=== PATIENT | male | born 1980 | race Caucasian/White ===

== ENCOUNTER 2016-11-26 11:32 | Emergency (ER) | payer MEDICAID ==
[2016-11-26 11:43] VITALS: TEMP 99
--- NOTE | 2016-11-26 13:21 | EDPHY ---
H & P Time Seen by Provider: 11/26/16 13:18 HPI/ROS: HPI: 36-year-old male presents to emergency department with chief concern right knee pain and swelling that onset 2 weeks ago when he jumped over a fence , landing on his leg in such a way that his right knee buckled, and has had intense pain and swelling since that time. Was evaluated at a [facility] emergency department. X-ray was performed. He was not given a brace, was not given a copy of his x-ray, nor a referral for Orthopedics. He is requesting a orthopedic referral. Denies striking his head, neck or back pain. Reports intermittent right hip discomfort as he has been walking on his right knee without crutches over the past several days despite the intense pain. ROS:10 point review of systems is negative other than as stated in HPI Smoking Status: Former smoker Physical Exam: Vital signs stable, reviewed by me General: Awake, alert, calm, cooperative. No acute distress. Head: Normalocephalic. Atraumatic. EENT: PERRLA. EOMI. Neck: Supple, nontender. No midline tenderness, full ROM. Respiratory: Breathing unlabored. CV: Chest nontender, atraumatic. Distal pulses 2+. Brisk cap refill all extremities. GI: Deferred Neuro: Alert. Oriented x 3. Sensation intact all extremities. Skin: Skin warm, dry, intact. No ecchymosis, abrasions, or lacerations. Extremities: No discomfort to palpation of the right hip, leg, ankle or foot. Full ROM. Generalized swelling right knee. There is discomfort to palpation of the superior, lateral, inferior aspect of the right knee. Markedly decreased extension and flexion. Negative valgus and varus stress. Negative Kathi. Negative AP drawer. Negative ballotment. Constitutional: Initial Vital Signs Temperature (C) 37.2 C 11/26/16 11:40 Heart Rate 81 11/26/16 11:40 Respiratory Rate 16 11/26/16 11:40 Blood Pressure 125/71 H 11/26/16 11:40 O2 Sat (%) 94 11/26/16 11:40 Allergies/Adverse Reactions: No Known Allergies Allergy (Verified 09/23/16 13:32) Home Medications: Medication Instructions Recorded CYCLOBENZAPRINE HCL [Flexeril] 5 mg PO TIDPRN PRN #10 tab 09/23/16 Hydrocodone/APAP 5/325 [Killeen 1 each PO Q4-6PRN PRN #14 tab 09/23/16 5/325 (*)] Hydrocodone/APAP 5/325 [[place] 1 tab PO Q4H PRN #10 tab 11/26/16 5/325 (*)] Medical Decision Making - Diagnostics Imaging: Knee x-ray consistent with effusion but no fracture, dislocation. Final report pending at time this dictation ED Course/Re-evaluation: Patient place in a right knee brace. Neurovascular status intact after application. He has crutches at home. Copy of his x-ray given to him on disc. He has been referred for follow up with Orthopedics. Differential Diagnosis: Differential diagnosis includes but is not limited to internal derangement of the knee, including meniscal injury, ligament injury, fracture, dislocation Departure - Departure Disposition: Home, Routine, Self-Care Clinical Impression: Internal derangement of knee Qualifiers: Laterality: right Qualifier Code: (M23.91) Unspecified internal derangement of right knee Condition: Good Instructions: Swollen Knee Joint (ED) Additional Instructions: Plan: Use your crutches until you follow up with Orthopedics Follow up with orthopedist by the end of this week--When you call to schedule appointment, please let the office know you are an "ER follow up" appointment" You may use 600 mg of ibuprofen every 6 hours for fever, inflammation, or pain. Always take ibuprofen with food and stay well hydrated while taking. Do not exceed the maximum allowable dose in a 24 hour period which is 2400 mg. ice every 1-2 hours for 20 minutes for the the next 2-3 days Wear knee brace while up and about 1-2 Killeen every 6 hours as needed for severe discomfort--never drink or drive while taking, you need to follow up with orthopedist for further narcotic refills if your pain is severe Referrals: NONE *PRIMARY CARE P,. [Primary Care Provider] - As per Instructions Carlyle Boyd MD [Medical Doctor] - As per Instructions Carlyle Champagne MD [Medical Doctor] - As per Instructions Prescriptions: Hydrocodone/APAP 5/325 [K[place] 5/325 (*)] 1 tab PO Q4H PRN #10 tab PRN Reason: Severe pain
[2016-11-26 13:54] VITALS: BP 123/87; PULSE 77; RESP 18; O2SAT 97
--- NOTE | 2016-11-26 14:52 | DX ---
Right knee, 5 views. HISTORY: Pain after trauma. Difficulty walking. FINDINGS: There is thickening of the suprapatellar soft tissues suggestive of joint effusion or quadr iceps tendon injury. The patella is also somewhat low in position. MRI examination of the knee is sug gested for further characterization of possible distal quadriceps tendon injury as clinically appropr iate. No fracture. Joint spaces are maintained. IMPRESSION: 1. Soft tissue thickening in the suprapatellar space suspicious for distal quadriceps injury or knee joint effusion. MRI of the knee is suggested as clinically appropriate.
== END 2016-11-26 13:54 | disposition home or self-care (01) ==
DX: M23.91 Unspecified internal derangement of right knee (principal); Z87.891 Personal history of nicotine dependence
CPT/HCPCS: L1830

== ENCOUNTER → 2016-12-24 | Outpatient (CLI) | payer MEDICAID | LOC: FIMAGING 12:02 | PROVIDERS: ATTEND Physician Assistant | DX: S83.511A Sprain of anterior cruciate ligament of right knee, initial encounter (principal); S83.251A Bucket-handle tear of lateral meniscus, current injury, right knee, initial encounter; S83.231A Complex tear of medial meniscus, current injury, right knee, initial encounter; S83.411A Sprain of medial collateral ligament of right knee, initial encounter; M22.41 Chondromalacia patellae, right knee; M25.461 Effusion, right knee ==

== ENCOUNTER 2017-01-12 08:42 | Day surgery (SDC) | payer MEDICAID ==
[2017-01-12] MEDS ORDERED: LIDOCAINE 1% 5 ML SDV ONE (08:57)
[2017-01-12] MEDS ORDERED: BUPIVACAINE/EPI 0.5% 30 ML SDV ONE (09:20)
[2017-01-12] MEDS ORDERED: LIDOCAINE 1% 5 ML SDV ID PRN (09:26)
[2017-01-12] MEDS ORDERED: LR 1,000 ML IV ONE (09:26)
[2017-01-12] MEDS ORDERED: CHLORHEXIDINE GLUC HIBICLENS 118 ML BTL TP ONE (09:30)
[2017-01-12] MEDS ORDERED: ceFAZolin 2 GM/DEXTROSE 100 ML IV ONE (09:30)
[2017-01-12] MEDS ORDERED: PROPOFOL 200 MG/20 ML VIAL ONE (09:32)
[2017-01-12] MEDS ORDERED: MIDAZOLAM 2 MG/2 ML VIAL ONE (09:33)
[2017-01-12] MEDS ORDERED: ROCURONIUM 50 MG/5 ML VIAL ONE ×2 (09:33)
[2017-01-12] MEDS ORDERED: HYDROmorphONE/DILAUDID 2 MG/ML INJ ONE (09:34)
[2017-01-12] MEDS ORDERED: LIDOCAINE 2% 5 ML SDV ONE (09:35)
[2017-01-12] MEDS ORDERED: LIDOCAINE 2% JELLY 5 ML TUBE ONE (09:35)
[2017-01-12] MEDS ORDERED: PROPOFOL/EMULSION 500 MG/50 ML BOTTLE IV ONE ×2 (09:48→10:44)
[2017-01-12] MEDS ORDERED: GLYCOPYRROLATE 0.2 MG/1 ML VIAL ONE ×2 (10:02→11:01)
[2017-01-12] MEDS ORDERED: fentaNYL 250 MCG/5 ML INJ ONE (10:48)
[2017-01-12] MEDS ORDERED: KETOROLAC 30 MG/1 ML SDV ONE (10:57)
[2017-01-12] MEDS ORDERED: PHENYLEPHRINE 10 MG/ML SDV ONE (11:01)
[2017-01-12] MEDS ORDERED: ONDANSETRON 4 MG/2 ML VIAL ONE (11:07)
[2017-01-12] MEDS ORDERED: DEXAMETHASONE 4 MG/ML VIAL ONE (11:07)
[2017-01-12] MEDS ORDERED: NALOXONE HCL 0.4 MG/ML INJ ONE ×2 (11:18)
[2017-01-12] MEDS ORDERED: fentaNYL 100 MCG/2 ML INJ ONE (11:33)
[2017-01-12] MEDS ORDERED: HYDROmorphONE/DILAUDID 1 MG/ML SYR ONE (11:41)
[2017-01-12] MEDS ORDERED: OXYCODONE/APAP 5/325 TAB ONE ×2 (12:25→12:58)
[2017-01-12] MEDS ORDERED: DIAZEPAM 5 MG TAB ONE (12:53)
[2017-01-12] MEDS ORDERED: DIAZEPAM 5 MG TAB PO ONE (13:00)
--- NOTE | 2017-01-13 09:20 | GOP ---
DATE OF OPERATION: 01/12/2017 SURGEON: Cuauhtemoc Moraes MD COMMERCIAL ELECTRICIAN: Gallito Goldman, RESIDENTIAL DRIVER, [facility]. animal care assistant was a medical necessity for the entirety of the case. PREOPERATIVE DIAGNOSIS: Right knee anterior cruciate ligament disruption. Lateral meniscus tear. POSTOPERATIVE DIAGNOSIS: Right knee anterior cruciate ligament disruption. Lateral meniscus tear. PROCEDURE PERFORMED: 1. Right knee anterior cruciate ligament reconstruction with hybrid tendon graft, tendon graft harv est from a distance. 2. Partial lateral meniscectomy. FINDINGS: INDICATIONS: The patient is a 37-year-old gentleman, who has sustained an injury to his right knee, with disruption of his ACL and bucket-handle displaced tear to his lateral meniscus. Given the per sistent nature of his symptoms and immobility, I have recommended surgical intervention. I outlined the surgical procedure, risks, benefits, alternatives. He wished to proceed. Written consent was signed and placed in patient's chart. DESCRIPTION OF PROCEDURE: The patient was identified in the preanesthesia area. He was given 2 g o f Ancef intravenously en route to the operative suite. In the OR, general endotracheal anesthesia w as administered. Attention was turned to the right knee which was sterilely prepped and draped in t usual fashion. Appropriate time-out procedure was carried out. The limb was exsanguinated with an Esmarch bandage. Tourniquet inflated to 275 mmHg. Standard arthroscopic portal sites were creat ed. Diagnostic arthroscopy ensued. The suprapatellar pouch demonstrated moderately inflamed synovi um. The articular surface of the patella and trochlea demonstrated grade 1 softening only. The med ial and lateral gutters were free of any loose or foreign debris. The medial compartment was entere d. The articular surface of the femur and tibia were intact, with mild grade 1 softening. The medi al meniscus demonstrated minimal degenerative inner margin fraying. Minimal debridement was carried out. The intercondylar notch was entered. The ACL was grossly disrupted and incarcerated across t anterior surface of the knee. There was a displaced bucket-handle tear to the lateral meniscus w hich was macerated and torn from its posterior insertion. This was deemed irreparable and removed. Approximately 60% of the mid 3rd to posterior 3rd volume of the lateral meniscus was debrided and r emoved. The remaining edge was grossly tattered. This was cleaned with a biting meniscal instrumen t to a clean and stable edge. Any loose particulate debris was withdrawn. There were grade 2 chond ral changes across the lateral femoral condyle. Attention was turned to the anterior aspect of the knee and anteromedial incision was made. This was carried sharply through the skin to the subcutane ous tissue. This was elevated across to the sartorius fascia. A linear incision was made over the semitendinosus tendon. This was freed of the surrounding soft tissue and stripped down to the muscu lar belly. This graft was then prepared on the back table, with removal of the remaining muscular t issue, suturing of the proximal margin. This was then combined with an allograft tendon prepared in similar fashion, with fiber loop suturing on the proximal and distal ends, over an ACL tight rope b utton, under moistened gauze and tension. Concomitantly, attention was turned to the knee. The remnants of the ACL were completely excised. Notchplasty was performed with an oscillating shaver and bur and a curette. All loose particulate d ebris was withdrawn. A 10 mm femoral tunnel was created using a flip cutter from an outside in [facility], and a separate tibial tunnel was made using a reamer over a guide pin. The sutures for the A CL tightrope were drawn in retrograde fashion, exiting the lateral surface of the femur. The button was flipped on the lateral cortex of the femur and the graft drawn into the femoral tunnel. Each i ndividual strand of the graft was placed under tension. Knee was taken through 10 cycles of motion and a posterior drawer was applied, and the graft was secured in the tibia using an 11 x 28 mm BioCo mposite screw. The excess graft was trimmed flush. Those sutures were removed. The particulate de bris within the knee was evacuated free. All incisions were closed using 2-0 Monocryl, 4-0 nylon. The knee was instilled with 30 cc of 0.5% Marcaine with epinephrine. Sterile dressing was applied, followed by a brace. The patient was awakened, taken to the recovery room in good, stable condition . He will follow standard ACL recovery. /[id number]/MODL
== END 2017-01-12 15:00 | disposition home health service (06) ==
LOC: FSGY 08:42
PROVIDERS: ATTEND Orthopaedic Surgery
PROC: 0MQN4ZZ Repair Right Knee Bursa and Ligament, Percutaneous Endoscopic Approach (ICD-10-PCS; principal; 2017-01-12 09:15)
PROC: 0SBC4ZZ Excision of Right Knee Joint, Percutaneous Endoscopic Approach (ICD-10-PCS; principal; 2017-01-12 09:15)
DX: S83.511A Sprain of anterior cruciate ligament of right knee, initial encounter (principal); S83.251A Bucket-handle tear of lateral meniscus, current injury, right knee, initial encounter; W19.XXXA Unspecified fall, initial encounter; Y93.9 Activity, unspecified
CPT/HCPCS: C1713; C1762; J0171; J0690; J1100; J1170; J1885; J2250; J2310; J2370; J2405; J2704; J3010; L1832

== ENCOUNTER 2018-10-18 10:40 | Emergency (ER) | payer MEDICAID ==
[2018-10-18 11:45] LABS: PLATELET COUNT 247 10^3/uL (150-400)
--- NOTE | 2018-10-18 12:31 | EDPHY ---
H & P Stated Complaint: upper abd pain since yesterday Time Seen by Provider: 10/18/18 12:25 HPI/ROS: CHIEF COMPLAINT: Chronic epigastric pain HISTORY OF PRESENT ILLNESS: The patient presents the ED with complaints of acutely worsening chronic epigastric pain. The patient reports he has had symptoms for years. He reports a tight band light sensation in his epigastrium. He denies any vomiting, melena or hematemesis. The patient denies fever, cough or congestion. The patient denies any workup by Gastroenterology. The patient does have a prior history of appendectomy. His symptoms are moderate in nature. REVIEW OF SYSTEMS: A comprehensive 10 point review of systems is otherwise negative aside from elements mentioned in the history of present illness. 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 - Social History Smoking Status: Current every day smoker - Physical Exam Exam: General Appearance: Alert, no distress Eyes: Pupils equal and round no pallor or injection ENT, Mouth: Mucous membranes moist Respiratory: There are no retractions, lungs are clear to auscultation Cardiovascular: Regular rate and rhythm Gastrointestinal: Minimal epigastric tenderness Neurological: 5/5 strength all 4 extremities Skin: Warm and dry, no rashes, evidence of prior IVDU Musculoskeletal: Neck is supple nontender Extremities: symmetrical, full range of motion Psychiatric: Patient is oriented X 3, there is no agitation Constitutional: Initial Vital Signs Temperature (C) 36.6 C 10/18/18 10:46 Heart Rate 81 10/18/18 10:46 Respiratory Rate 18 10/18/18 10:46 Blood Pressure 124/94 H 10/18/18 10:46 O2 Sat (%) 97 10/18/18 10:46 O2 Delivery Mode Room Air Allergies/Adverse Reactions: No Known Allergies Allergy (Verified 10/18/18 10:45) Home Medications: Medication Instructions Recorded Ranitidine HCl [Zantac] 150 mg PO BID #60 tablet 10/18/18 Medical Decision Making ED Course/Re-evaluation: The patient has reassuring abdominal examination with minimal epigastric tenderness. The patient's vital signs are stable. Workup in the emergency department consisted of a normal CBC, normal serum chemistry, normal lipase and liver function tests. The patient is already status post appendectomy. At this point time I do feel the patient can be discharged home with instructions to use ranitidine 150 mg twice a day. He is given the contact number of our on-call refurbish technician. The patient is also advised to follow up with primary care. Differential Diagnosis: Differential diagnosis considered includes pancreatitis, cholecystitis, hepatitis, peptic ulcer disease. - Data Points Laboratory Results: Laboratory Results 10/18/18 11:35 10/18/18 11:35 10/18/18 10/18/18 10/18/18 11:35 11:35 11:35 WBC 6.91 10^3/uL 10^3/uL (3.80-9.50) RBC 5.46 10^6/uL 10^6/uL (4.40-6.38) Hgb 16.5 g/dL g/dL (13.7-17.5) Hct 47.5 % % (40.0-51.0) MCV 87.0 fL fL (81.5-99.8) MCH 30.2 pg pg (27.9-34.1) MCHC 34.7 g/dL g/dL (32.4-36.7) RDW 13.2 % % (11.5-15.2) Plt Count 247 10^3/uL 10^3/uL (150-400) MPV 10.5 fL fL (8.7-11.7) Neut % (Auto) 54.3 % % (39.3-74.2) Lymph % (Auto) 35.0 % % (15.0-45.0) Kaufman % (Auto) 8.0 % % (4.5-13.0) Eos % (Auto) 2.0 % % (0.6-7.6) Baso % (Auto) 0.6 % % (0.3-1.7) Nucleat RBC Rel Count 0.0 % % (0.0-0.2) Absolute Neuts (auto) 3.75 10^3/uL 10^3/uL (1.70-6.50) Absolute Lymphs (auto) 2.42 10^3/uL 10^3/uL (1.00-3.00) Absolute Monos (auto) 0.55 10^3/uL 10^3/uL (0.30-0.80) Absolute Eos (auto) 0.14 10^3/uL 10^3/uL (0.03-0.40) Absolute Basos (auto) 0.04 10^3/uL 10^3/uL (0.02-0.10) Absolute Nucleated RBC 0.00 10^3/uL 10^3/uL (0-0.01) Immature Gran % 0.1 % % (0.0-1.1) Immature Gran # 0.01 10^3/uL 10^3/uL (0.00-0.10) Sodium 139 mEq/L mEq/L (135-145) Potassium 5.0 mEq/L mEq/L (3.5-5.2) Chloride 107 mEq/L mEq/L (97-110) Carbon Dioxide 23 mEq/l mEq/l (22-31) Anion Gap 9 mEq/L mEq/L (6-14) BUN 16 mg/dL mg/dL (7-23) Creatinine 0.9 mg/dL mg/dL (0.7-1.3) Estimated GFR > 60 Glucose 103 mg/dL H mg/dL (70-100) Calcium 9.7 mg/dL mg/dL (8.5-10.4) Total Bilirubin 1.2 mg/dL mg/dL (0.1-1.4) Conjugated Bilirubin 0.4 mg/dL mg/dL (0.0-0.5) Unconjugated Bilirubin 0.8 mg/dL mg/dL (0.0-1.1) AST 41 IU/L IU/L (17-59) ALT 22 IU/L IU/L (21-72) Alkaline Phosphatase 86 IU/L IU/L (38-126) Total Protein 7.8 g/dL g/dL (6.3-8.2) Albumin 4.8 g/dL g/dL (3.5-5.0) Lipase 78 IU/L IU/L (23-300) Specimen Hemolysis 105 Departure - Departure Disposition: Home, Routine, Self-Care Clinical Impression: Abdominal pain Qualifiers: Abdominal location: epigastric Qualified Code(s): R10.13 - Epigastric pain Condition: Good Instructions: Acute Abdominal Pain (DC) Additional Instructions: 1. Please begin taking Zantac 150 mg twice a day. 2. Please schedule a follow-up appointment with primary care. You have been given the number of [facility]. Additionally you have been given the number of our on-call refurbish technician Dr. Hidalgo for evaluation of your chronic abdominal discomfort. 3. Please return to the ED for markedly worsening symptoms, high fever or other concerns. Referrals: [facility],. [Clinic] - As per Instructions Chester Hidalgo MD [Medical Doctor] - As per Instructions
[2018-10-18 13:59] VITALS: BP 132/88
== END 2018-10-18 14:03 | disposition home or self-care (01) ==
DX: R10.13 Epigastric pain (principal); F17.200 Nicotine dependence, unspecified, uncomplicated; Z98.890 Other specified postprocedural states